=== PATIENT | female | born 1980 | race Caucasian/White ===

== ENCOUNTER 2019-03-10 13:01 | Emergency (ER) | payer MEDICAID ==
[~2019-03-10] VITALS: Ht 160 cm; Wt 60.5 kg
[2019-03-10 13:06] VITALS: BP 134/91
[2019-03-10] MEDS ORDERED: ibuprofen tablet 400 MG TABLET PO ONE (14:05)
[2019-03-10] MEDS ORDERED: IBUP-1984 PO (14:42)
== END 2019-03-10 14:52 | disposition home or self-care (01) ==
LOC: ER 13:02
DX: M79.671 Pain in right foot (principal); R51 Headache; Z59.0 Homelessness; Z79.899 Other long term (current) drug therapy
CPT/HCPCS: 73630; 99283

== ENCOUNTER 2021-02-10 10:11 | Emergency (ER) | payer MEDICAID ==
[~2021-02-10] VITALS: Ht 160 cm; Wt 87.4 kg
[2021-02-10 10:39] VITALS: BP 124/77
[2021-02-10] MEDS ORDERED: HYDR28CR14 TOP (10:45)
[2021-02-10] MEDS ORDERED: CLIN300C70 PO (10:45)
[2021-02-10] MEDS ORDERED: PERM60CR19 TOP (10:45)
== END 2021-02-10 10:45 | disposition home or self-care (01) ==
LOC: ER 10:12
DX: R21 Rash and other nonspecific skin eruption (principal); B86 Scabies; Z79.2 Long term (current) use of antibiotics; Z79.899 Other long term (current) drug therapy
CPT/HCPCS: 99283

== ENCOUNTER 2021-03-10 12:40 | Emergency (ER) | payer MEDICAID ==
[~2021-03-10] VITALS: Ht 160 cm; Wt 75.0 kg
[~2021-03-10 12:40] MED LIST: HYDR28CR14 TOP; PERM60CR19 TOP
[2021-03-10 13:33] VITALS: BP 149/104
[2021-03-10] MEDS ORDERED: HYDR28CR14 TOP (14:12)
[2021-03-10] MEDS ORDERED: PERM60CR19 TOP (14:12)
== END 2021-03-10 14:34 | disposition home or self-care (01) ==
LOC: ER 12:40
DX: B86 Scabies (principal); Z79.899 Other long term (current) drug therapy
CPT/HCPCS: 99283

== ENCOUNTER 2022-01-08 01:17 | Emergency (ER) | payer MEDICAID ==
[~2022-01-08] VITALS: Ht 162.6 cm; Wt 75.0 kg
[~2022-01-08 01:17] MED LIST changes: -PERM60CR19 TOP
[2022-01-08] MEDS ORDERED: aspirin 81mg tab.chew PO ONE (01:45)
[2022-01-08] MEDS ORDERED: LORazepam 1 MG tablet PO ONE (01:45)
[2022-01-08] MEDS ORDERED: HYDROcodone/acetaminophen 5mg/325mg tablet PO ONE (01:50)
[2022-01-08 02:18] LABS: BASOPHILS # (AUTO) 0.1 X10'3 (0-0.2); EOSINOPHILS # (AUTO) 0.2 X10'3 (0-0.9); HEMOGLOBIN 13.6 g/dl (12.0-16.0); LYMPHOCYTES # (AUTO) 1.5 X10'3 (1.1-4.8); LYMPHOCYTES % (AUTO) 15.7 % (21-51); MEAN CORPUSCULAR HEMOGLOBIN 30.9 PG (27.0-31.0); MEAN CORPUSCULAR HGB CONC 34.8 g/dL (33.0-36.5); MEAN CORPUSCULAR VOLUME 88.9 FL (78-98); MEAN PLATELET VOLUME 8.4 FL (7.4-10.4); MONOCYTES # (AUTO) 0.9 X10'3 (0-0.9); MONOCYTES % (AUTO) 9.7 % (2-12); NEUTROPHILS # (AUTO) 6.7 X10'3 (1.8-7.7); NEUTROPHILS % (AUTO) 71.6 % (42-75); PLATELET COUNT 301 X10'3 (140-440); RED BLOOD COUNT 4.39 X10'6 (4.20-5.60); RED CELL DISTRIBUTION WIDTH 12.9 % (11.5-14.5); WHITE BLOOD COUNT 9.4 X10'3 (4.5-11.0)
[2022-01-08 02:32] LABS: ALANINE AMINOTRANSFERASE 18 U/L (12-78); ALBUMIN 3.6 G/DL (3.4-5.0); ALKALINE PHOSPHATASE 88 IU/L (46-116); ANION GAP 8 (8-16); ASPARTATE AMINO TRANSFERASE 15 U/L (10-37); BILIRUBIN,TOTAL 0.3 MG/DL (0.1-1.0); BLOOD UREA NITROGEN 14 MG/DL (7-18); BUN/CREATININE RATIO 17.7 (6.6-38.0); CALCIUM 8.4 MG/DL (8.5-10.1); CHLORIDE 107 MMOL/L (99-107); CREATININE 0.79 MG/DL (0.40-0.90); GLUCOSE 102 MG/DL (70-104); POTASSIUM 3.3 MMOL/L (3.5-5.1); SODIUM 141 MMOL/L (135-145); TOTAL CARBON DIOXIDE 25.6 MMOL/L (24-32); TOTAL PROTEIN 7.2 G/DL (6.4-8.2); eGFR 80 ML/MIN
[2022-01-08 02:44] LABS: ETHANOL < 0.010 GM/DL (0.0-0.010)
[2022-01-08] MEDS ORDERED: NAPR-56 PO (03:08)
[2022-01-08] MEDS ORDERED: naproxen 500mg tablet PO ONE (03:10)
[2022-01-08 03:17] VITALS: BP 120/82
== END 2022-01-08 03:20 ==
LOC: ER 01:17
DX: R07.89 Other chest pain (principal); R42 Dizziness and giddiness; I10 Essential (primary) hypertension; Z59.00 Homelessness unspecified; Z79.899 Other long term (current) drug therapy
CPT/HCPCS: 36415; 71045; 80053; 80320; 83735; 83880; 84484; 85025; 93005; 99285